=== PATIENT | female | born 1990 | race Hispanic/Latino ===

== ENCOUNTER 2018-04-11 14:37 | Emergency (ER) | payer BC, OTHER ==
[2018-04-11 15:11] LABS: Bilirubin Negative (Negative); Blood, Urine Negative (Negative); Clarity CLEAR (Clear); Glucose, Urine (Dipstick) Negative (Negative); Leukocyte Negative (Negative); Nitrite Negative (Negative); Protein, Urine (Dipstick) Negative (Neg-Trace)
[2018-04-11 15:12] LABS: Pregnancy Test - Urine (BHCG) Negative (Negative); Pregu Control Background? CLEAR/WHITE (CLR/WHITE); Pregu Control Bar Appear? YES (CONTROL BAR)
[2018-04-11 15:13] LABS: #Basophils 0.1 thou/uL (0.0-0.2); #Eosinphils 0.1 thou/uL (0.0-0.7); #Lymphocytes 2.6 thou/uL (1.20-3.40); #Monocytes 0.5 thou/uL (0.11-0.59); #Neutrophils 4.7 thou/uL (1.40-6.50); %Basophils 0.8 % (0.0-1.0); %Eosinophils 1.8 % (0.0-10.0); %Monocytes 6.4 % (0.0-10.0); Mean Corpuscular HGB CONC 32.5 g/dL (32.0-36.0); Mean Corpuscular Hemoglobin 29.4 pg (27.0-31.0); Mean Corpuscular Volume 90.5 fL (78.0-98.0); Platelet Count 275 thou/uL (130-400); Red Blood Cell (RBC) Count 5.43 mill/uL (4.20-5.40)
[2018-04-11 15:54] LABS: ALT (SGPT) 36 U/L (8-55); AST (SGOT) 25 U/L (5-34); Albumin 4.4 g/dL (3.5-5.0); Alkaline Phosphatase 114 U/L (40-150); Anion Gap 14 mmol/L (10-20); BUN (Urea Nitrogen) 8 mg/dL (7.0-18.7); Bilirubin, Total 0.7 mg/dL (0.2-1.2); Calc. Creatinine Clearance 0 mL/min (70-130); Calcium 9.5 mg/dL (7.8-10.44); Carbon Dioxide 26 mmol/L (22-29); Chloride 103 mmol/L (98-107); Estimated GFR-MDRD Greater than 90; Globulin 3.9 g/dL (2.4-3.5); Glucose 77 mg/dL (70-105); Lipase 31 U/L (8-78); Potassium 3.6 mmol/L (3.5-5.1); Protein, Total 8.3 g/dL (6.0-8.3); Sodium 139 mmol/L (136-145)
[2018-04-11] MEDS ORDERED: Mag-Al 1200 mg/1200 mg/30 ML UDCUP ONE (16:29)
[2018-04-11] MEDS ORDERED: Lidocaine Viscous Sol 2% 15 ml UD Cup ONE (16:29)
[2018-04-11] MEDS ORDERED: Dicyclomine 20 MG TAB ONE (16:52)
== END 2018-04-11 17:23 | disposition home or self-care (01) ==
LOC: ERS 14:37
DX: R10.9 Unspecified abdominal pain (principal); Z79.84 Long term (current) use of oral hypoglycemic drugs
CPT/HCPCS: 36415; 80053; 81003; 81025; 83690; 85025; 99284

== ENCOUNTER 2018-04-13 09:11 | Emergency (ER) | payer BC, OTHER ==
[2018-04-13] MEDS ORDERED: Pantoprazole 40 MG VIAL ONE (09:37)
[2018-04-13] MEDS ORDERED: Ondansetron PF 4 MG/2 ML Vial ONE (09:37)
[2018-04-13] MEDS ORDERED: Morphine 4 MG/ML VIAL ONE ×2 (09:37→10:59)
[2018-04-13 09:58] LABS: #Basophils 0.1 thou/uL (0.0-0.2); #Eosinphils 0.1 thou/uL (0.0-0.7); #Monocytes 0.7 thou/uL (0.11-0.59); #Neutrophils 7.5 thou/uL (1.40-6.50); %Basophils 0.5 % (0.0-1.0); %Eosinophils 0.6 % (0.0-10.0); %Lymphocytes 19.3 % (21.0-51.0); %Monocytes 6.4 % (0.0-10.0); %Neutrophils 73.2 % (42.0-75.0); Hemoglobin 15.7 g/dL (12.0-16.0); Mean Corpuscular HGB CONC 33.6 g/dL (32.0-36.0); Mean Corpuscular Hemoglobin 29.7 pg (27.0-31.0); Mean Corpuscular Volume 88.3 fL (78.0-98.0); Mean Platelet Volume 7.4 fL (7.4-10.4); Platelet Count 251 thou/uL (130-400); RBC Distribution Width 11.8 % (11.5-14.5); Red Blood Cell (RBC) Count 5.31 mill/uL (4.20-5.40); White Blood Cell (WBC) Count 10.3 thou/uL (4.8-10.8)
[2018-04-13 10:00] LABS: BHCG - Serum Negative (NEGATIVE); Pregs Control Background? CLEAR/WHITE (CLR/WHITE); Pregs Control Bar Appear? YES (CONTROL BAR)
[2018-04-13 10:16] LABS: ALT (SGPT) 31 U/L (8-55); AST (SGOT) 24 U/L (5-34); Albumin 4.3 g/dL (3.5-5.0); Alkaline Phosphatase 129 U/L (40-150); Anion Gap 15 mmol/L (10-20); BUN (Urea Nitrogen) 10 mg/dL (7.0-18.7); Bilirubin, Total 0.9 mg/dL (0.2-1.2); Calc. Creatinine Clearance 0 mL/min (70-130); Calcium 9.5 mg/dL (7.8-10.44); Carbon Dioxide 27 mmol/L (22-29); Chloride 99 mmol/L (98-107); Estimated GFR-MDRD Greater than 90; Globulin 3.9 g/dL (2.4-3.5); Glucose 90 mg/dL (70-105); Lipase 25 U/L (8-78); Potassium 3.8 mmol/L (3.5-5.1); Protein, Total 8.2 g/dL (6.0-8.3); Sodium 137 mmol/L (136-145)
[2018-04-13] MEDS ORDERED: Ketorolac Tromethamine 30 MG/ML VIAL ONE (10:59)
--- NOTE | 2018-04-13 11:57 | ULT ---
SONOGRAM RIGHT UPPER QUADRANT: HISTORY: Right upper quadrant pain. FINDINGS: Gallbladder has a normal appearance. The common duct is 0.3 cm. Liver unremarkable without focal ma ss or intrahepatic biliary dilatation. No free fluid. IMPRESSION: No evidence of gallstones or biliary obstruction. POS: [facility]
--- NOTE | 2018-04-13 13:58 | CT ---
CT ABDOMEN AND PELVIS WITH IV CONTRAST: HISTORY: Abdomen pain. FINDINGS: Lung bases are clear. The liver, spleen, kidneys, adrenal glands, and pancreas have a normal CT appe arance. Urinary bladder is incompletely distended. The appendix is not inflamed. IMPRESSION: No significant abnormalities are demonstrated. POS: [facility]
== END 2018-04-13 12:35 | disposition home or self-care (01) ==
LOC: ERS 09:11
DX: R10.11 Right upper quadrant pain (principal); Z79.84 Long term (current) use of oral hypoglycemic drugs; Z79.899 Other long term (current) drug therapy
CPT/HCPCS: 74177; 76705; 80053; 83690; 84703; 85025; 93005; 96361; 96374; 96375; 96376; C9113; J1885; J2270; J2405

== ENCOUNTER 2018-04-19 09:11 | Outpatient (CLI) | payer BC, OTHER ==
--- NOTE | 2018-04-19 13:39 | NM ---
NUCLEAR MEDICINE HIDA SCAN: HISTORY: Unspecified abdominal pain. TECHNIQUE: Technetium 99m mebrofenin, 4.8 millicuries, intravenously. Gallbladder ejection fraction was determi pj after the patient was administered 8 oz of Ensure. FINDINGS: There is appropriate uptake of the radiotracer by the hepatic parenchyma. There is excretion of the red tracer into the intrahepatic and extrahepatic biliary system. There is passage of radiotracer fr om the common bile duct into small bowel loops. There is localization of radiotracer in the gallblad elicia, as early as 8 minutes. Gallbladder ejection fraction is 73%. IMPRESSION: 1. No scintigraphic evidence of acute cholecystitis. 2. Gallbladder ejection fraction 73%. POS: [facility]
== END 2018-04-19 09:12 | disposition home or self-care (01) ==
LOC: NM 09:11
PROVIDERS: ATTEND Internal Medicine Gastroenterology
DX: R10.9 Unspecified abdominal pain (principal)
CPT/HCPCS: 78227; A9537

== ENCOUNTER 2018-04-24 10:32 | Outpatient (CLI) | payer BC, OTHER ==
--- NOTE | 2018-04-24 13:55 | MRI ---
MRI BRAIN WITH AND WITHOUT CONTRAST: 04/24/2018 HISTORY: Secondary amenorrhea. Hyperprolactinemia. COMPARISON: None. TECHNIQUE: Multiplanar, multisequence MR imaging of the brain obtained with and without contrast, using a pituit otoniel mass protocol. FINDINGS: The diffusion-weighted imaging demonstrates no evidence for acute infarction. No midline shift, mass effect, or ventricular enlargement is evident. Regional bone marrow signal intensity is within normal limits. On the coronal T2 weighted imaging, there is a tiny area of increased signal intensity along the ante rior-most margin of the anterior lobe of the pituitary gland, on the left, measuring in the 2-3 mm ra nge. This may represent volume averaging. The post contrast imaging demonstrates no discrete abnorm ality in this region, however. The pituitary stalk appears normal and midline. Pituitary gland enha ncement appears grossly unremarkable. No suprasellar mass. Post contrast imaging demonstrates no abnormal enhancement within the brain parenchyma. IMPRESSION: No convincing evidence for a pituitary mass. POS: [facility]
== END 2018-04-24 10:33 | disposition home or self-care (01) ==
LOC: BICMRI 10:32
PROVIDERS: ATTEND Family Medicine
DX: N91.1 Secondary amenorrhea (principal); E22.1 Hyperprolactinemia
CPT/HCPCS: 70553